=== PATIENT | male | born 1990 | race Caucasian/White ===

== ENCOUNTER 2020-07-08 05:24 | Emergency (ER) | payer OTHER ==
[~2020-07-08] VITALS: Ht 185.4 cm; Wt 90.7 kg
[~2020-07-08 05:24] MED LIST: ACETAMINOPHEN-1 EAC1 PO; AUGMENTIN 500-1 EACH PO; ERYTHROMYCIN E3.5 G3 OPHTHALMIC; HYDROCODONE-AP1 EAC6 PO; PENICILLIN VK500 M1 PO; TRAMADOL 50 MG50 MG PO; XANAX 0.25 MG0.25 MG PO
[2020-07-08 07:14] LABS: URINE BILIRUBIN NEGATIVE (Negative); URINE BLOOD NEGATIVE (Negative); URINE CLARITY CLEAR; URINE COLOR YELLOW; URINE GLUCOSE-RANDOM* NEGATIVE (Negative); URINE KETONES NEGATIVE (Negative); URINE LEUKOCYTES-REFLEX NEGATIVE (Negative); URINE NITRITE-REFLEX NEGATIVE (Negative); URINE PROTEIN (DIPSTICK) NEGATIVE (Negative); URINE UROBILINOGEN 0.2 E.U./dl (0.2-1.0)
[2020-07-08 07:37] LABS: ABSOLUTE NEUTROPHILS 6.1 thou/uL (1.4-8.2); BASOPHILS 0.5 % (0.0-2.0); EOSINOPHILS 2.1 % (0.0-3.0); HEMATOCRIT 42.1 % (42.0-52.0); HEMOGLOBIN 14.9 gm/dL (14.0-18.0); LYMPHOCYTES 30.7 % (24.0-44.0); MCH 32.9 pg (26.0-34.0); MCHC 35.3 g/dL (28.0-37.0); PLATELET COUNT 220 thou/uL (150-400); POLYS 59.7 % (36.0-66.0); RBC 4.53 mil/uL (4.50-6.00); RDW 15.1 % (10.5-14.5); WBC 10.3 thou/uL (4.0-11.0)
[2020-07-08 07:45] LABS: CREATININE 1.1 mg/dL (0.7-1.3); POTASSIUM 3.6 mmol/L (3.5-5.1)
[2020-07-08 07:53] LABS: ALBUMIN 3.9 g/dL (3.4-5.0); TOTAL BILIRUBIN 0.5 mg/dL (0.2-1.0); TOTAL PROTEIN 7.5 g/dL (6.4-8.2)
[2020-07-08] MEDS ORDERED: REESE'S PI50 MG/1 ML PO (08:46)
[2020-07-08] MEDS ORDERED: NORCO5 PO (08:46)
[2020-07-08 09:00] VITALS: BP 136/91
== END 2020-07-08 09:05 | disposition home or self-care (01) ==
LOC: ER 05:24
PROVIDERS: Emergency Medicine
DX: R19.7 Diarrhea, unspecified (principal); R10.32 Left lower quadrant pain; R11.10 Vomiting, unspecified; F17.210 Nicotine dependence, cigarettes, uncomplicated